=== PATIENT | female | born 1970 | race Caucasian/White ===

== ENCOUNTER 2022-09-03 12:57 | Outpatient (CLI) | payer BC ==
[2022-09-03] MEDS ORDERED: Sodium Bicarbonate 2.5 MEQ/5 ML VIAL ONE (13:11)
[2022-09-03] MEDS ORDERED: Lidocaine 1% PF 5 ML VIAL ONE (13:11)
[2022-09-03 14:48] VITALS: BP 158/72; TEMP 98.8
[2022-09-03] MEDS ORDERED: FLU VACC QS2022-23(6MOS UP)/PF 60 MCG/0.5 ML SYRINGE IM ONE (15:45)
[2022-09-03] MEDS ORDERED: Iopamidol-M 200 41% 10 ML VIAL FS ONE (18:24)
== END 2022-09-03 15:20 | disposition home or self-care (01) ==
LOC: CSHRAD 12:57
PROVIDERS: ATTEND Specialist
DX: M96.1 Postlaminectomy syndrome, not elsewhere classified (principal); M48.061 Spinal stenosis, lumbar region without neurogenic claudication
CPT/HCPCS: 62304; 72132; Q9966

== ENCOUNTER 2023-03-03 12:37 | Day surgery (SDC) | payer BC ==
[2023-03-03] MEDS ORDERED: Iopamidol-M 300 61% 15 ML VIAL ONE (13:32)
[2023-03-03 14:23] VITALS: BP 150/72; TEMP 96.4
== END 2023-03-03 14:45 | disposition home or self-care (01) ==
LOC: CSHCT 12:37
PROVIDERS: ATTEND Specialist
PROC: B02BYZZ Computerized Tomography (CT Scan) of Spinal Cord using Other Contrast (ICD-10-PCS; principal; 2023-03-03)
DX: M50.10 Cervical disc disorder with radiculopathy, unspecified cervical region (principal)
CPT/HCPCS: 62302; 72126